=== PATIENT | female | born 1935 | race Caucasian/White ===

== ENCOUNTER 2018-08-11 15:48 | Emergency (ER) | payer MEDICARE ==
[2018-08-11 16:19] LABS: BASOPHILS % (AUTO) 1.1 % (0.0-5.0); EOSINOPHILS % (AUTO) 1.5 % (0.0-8.0); HEMATOCRIT 33.8 % (36-48); LYMPHOCYTES % (AUTO) 22.7 % (21.0-51.0); MEAN CORPUSCULAR HEMOGLOBIN 30.2 pg (27.0-33.0); MEAN CORPUSCULAR HGB CONC 33.1 g/dL (32.0-36.0); MEAN CORPUSCULAR VOLUME 91.2 fL (79-99); MONOCYTES % (AUTO) 10.9 % (3.0-13.0); NEUTROPHILS % (AUTO) 63.8 % (40.0-77.0); PLATELET COUNT (AUTO) 167 K/uL (130-400); RED CELL DISTRIBUTION WIDTH 14.4 % (11.0-15.5); WHITE BLOOD COUNT (AUTO) 4.3 K/uL (4.8-10.8)
[2018-08-11 16:20] LABS: BILIRUBIN,URINE Negative (NEGATIVE); COLOR,URINE Dark Yellow (YELLOW); GLUCOSE, URINE (UA) Negative (NEGATIVE); KETONES,URINE Trace mg/dL (NEGATIVE); LEUKOCYTE ESTERASE ,URINE Negative (NEGATIVE); NITRATE,URINE Negative (NEGATIVE); OCCULT BLOOD,URINE Negative (NEGATIVE); PROTEIN,URINE Negative (NEGATIVE)
[2018-08-11 16:21] LABS: APPEARANCE,URINE CLEAR (CLEAR)
[2018-08-11 16:27] LABS: CREATININE 1.5 mg/dL (0.5-1.5); POTASSIUM 4.3 mmol/L (3.5-5.1)
[2018-08-11 16:32] LABS: ALBUMIN 3.6 g/dL (3.5-5.0); BILIRUBIN,TOTAL 0.3 mg/dL (0.2-1.0); TOTAL PROTEIN, SERUM 7.1 g/dL (6.0-8.3)
[2018-08-11] MEDS ORDERED: ONDANSETRON HCL 4 MG/2 ML VIAL ONE (16:44)
[2018-08-11] MEDS ORDERED: MORPHINE SULFATE 2 MG/ML 1ML SYG ONE (16:45)
[2018-08-11] MEDS ORDERED: SODIUM CHLORIDE 0.9% 1000ML 1,000 ML IV ONE (18:04)
== END 2018-08-11 19:01 | disposition home or self-care (01) ==
LOC: EDH 15:48
DX: E86.0 Dehydration (principal); F03.90 Unspecified dementia, unspecified severity, without behavioral disturbance, psychotic disturbance, mood disturbance, and anxiety; E78.5 Hyperlipidemia, unspecified; J44.9 Chronic obstructive pulmonary disease, unspecified; Z87.891 Personal history of nicotine dependence
CPT/HCPCS: 36415; 74176; 80053; 81003; 85025; 96374; 96375; 99284; J2405; J7030

== ENCOUNTER 2019-03-05 13:58 | Inpatient (IN) | payer MEDICARE ==
[~2019-03-05] VITALS: Ht 152.4 cm; Wt 49.9 kg
[2019-03-05 14:16] LABS: BASOPHILS % (AUTO) 0.3 % (0.0-5.0); EOSINOPHILS % (AUTO) 0.4 % (0.0-8.0); HEMATOCRIT 27.5 % (36-48); MEAN CORPUSCULAR HEMOGLOBIN 31.5 pg (27.0-33.0); MEAN CORPUSCULAR VOLUME 92.5 fL (79-99); MONOCYTES % (AUTO) 10.2 % (3.0-13.0); NEUTROPHILS % (AUTO) 75.1 % (40.0-77.0); PLATELET COUNT (AUTO) 129 K/uL (130-400); RED BLOOD CELL COUNT(AUTO) 2.97 MIL/uL (4.00-5.50); RED CELL DISTRIBUTION WIDTH 13.6 % (11.0-15.5); WHITE BLOOD COUNT (AUTO) 5.4 K/uL (4.8-10.8)
[2019-03-05 14:28] LABS: CREATININE 2.8 mg/dL (0.5-1.5); POTASSIUM 4.6 mmol/L (3.5-5.1)
[2019-03-05 14:35] LABS: ALBUMIN 3.5 g/dL (3.5-5.0); BILIRUBIN,TOTAL 0.4 mg/dL (0.2-1.0); TOTAL PROTEIN, SERUM 6.6 g/dL (6.0-8.3)
[2019-03-05 15:37] LABS: APPEARANCE,URINE Clear (CLEAR); BILIRUBIN,URINE Negative (NEGATIVE); COLOR,URINE Dark Yellow (YELLOW); GLUCOSE, URINE (UA) Negative (NEGATIVE); KETONES,URINE Negative (NEGATIVE); LEUKOCYTE ESTERASE ,URINE Negative (NEGATIVE); NITRATE,URINE Negative (NEGATIVE); OCCULT BLOOD,URINE Negative (NEGATIVE); PROTEIN,URINE POS 1+ mg/dL (NEGATIVE)
[2019-03-05 15:56] LABS: BACTERIA,URINE Few /HPF (None Seen); RBC,URINE 0-1 /HPF (0-1); WBC,URINE 0-1 /HPF (0-1)
[2019-03-05 15:57] LABS: SQUAMOUS EPITHELIAL CELL,UR Rare /HPF (0-2)
[2019-03-05 15:58] LABS: HYALINE CASTS, URINE 0-1 /LPF (0-1 /LPF); URIC ACID CRYSTALS,URINE Rare /LPF (None Seen)
[2019-03-05] MEDS ORDERED: CEFTRIAXONE SODIUM 1 GM ONE ×2 (17:53→17:55)
[2019-03-05] MEDS ORDERED: SODIUM CHLORIDE 0.9% 100 ML IV ONE ×2 (17:53→17:56)
[2019-03-05 18:55] VITALS: BP 123/70
[2019-03-05] MEDS ORDERED: DEXTROSE 50%-WATER 50 ML DISP.SYRIN IV PRN (19:30)
[2019-03-05] MEDS: PHARMACY COMMUNICATION MISC SCH (19:30)
[2019-03-05] MEDS ORDERED: GLUCAGON 1MG KIT 1 MG ML IM PRN (19:30)
[2019-03-05] MEDS: INSULIN R PO SS1 SQ SCH (20:44)
[2019-03-05] MEDS: 1/2 NORMAL SALINE 1,000 ML IV SCH (21:42)
[2019-03-05] MEDS ORDERED: QUETIAPINE FUMARATE 25 MG TAB PO SCH (22:00)
[2019-03-05] MEDS ORDERED: VIT1CAPS47 PO (22:20)
[2019-03-05] MEDS ORDERED: SERT100T12 PO ×2 (22:20→22:25)
[2019-03-05] MEDS ORDERED: DOCU100C33 PO (22:20)
[2019-03-05] MEDS ORDERED: DONE10TA43 PO (22:20)
[2019-03-05] MEDS ORDERED: ASPI-555 PO (22:25)
[2019-03-05] MEDS ORDERED: SIMV-46 PO (22:25)
[2019-03-05] MEDS ORDERED: MIRT15TA PO (22:25)
[2019-03-05] MEDS ORDERED: QUET25TA PO (22:25)
[2019-03-06] MEDS: PHARMACY COMMUNICATION MISC SCH ×2 (03:30→19:30)
[2019-03-06] MEDS: 1/2 NORMAL SALINE 1,000 ML IV SCH (03:33)
[2019-03-06 04:45] VITALS: BP 143/68
[2019-03-06] MEDS: INSULIN R PO SS1 SQ SCH ×3 (05:19→21:00)
[2019-03-06 05:48] LABS: BASOPHILS % (AUTO) 0.3 % (0.0-5.0); EOSINOPHILS % (AUTO) 1.7 % (0.0-8.0); HEMATOCRIT 23.9 % (36-48); LYMPHOCYTES % (AUTO) 21.8 % (21.0-51.0); MEAN CORPUSCULAR HEMOGLOBIN 31.6 pg (27.0-33.0); MEAN CORPUSCULAR HGB CONC 34.2 g/dL (32.0-36.0); MEAN CORPUSCULAR VOLUME 92.2 fL (79-99); MONOCYTES % (AUTO) 12.4 % (3.0-13.0); NEUTROPHILS % (AUTO) 63.8 % (40.0-77.0); PLATELET COUNT (AUTO) 113 K/uL (130-400); RED BLOOD CELL COUNT(AUTO) 2.59 MIL/uL (4.00-5.50); RED CELL DISTRIBUTION WIDTH 13.9 % (11.0-15.5); WHITE BLOOD COUNT (AUTO) 4.2 K/uL (4.8-10.8)
[2019-03-06 05:55] LABS: ALBUMIN 3.2 g/dL (3.5-5.0); BILIRUBIN,TOTAL 0.2 mg/dL (0.2-1.0); CREATININE 2.2 mg/dL (0.5-1.5); POTASSIUM 4.6 mmol/L (3.5-5.1); TOTAL PROTEIN, SERUM 6.3 g/dL (6.0-8.3)
--- NOTE | 2019-03-06 06:25 | NUR ---
CHAVA JAIN ROUNDED: Seen and examined pt with the ff: orders. 1. if pt eats well then let her go home. 2. resume home meds 3. will go out of town today. Dr. Chambers to cover.
[2019-03-06 07:30] VITALS: BP 140/60
[2019-03-06] MEDS: ***HM***(Vit C/E/Zn/Coppr/Lutein/Zeaxan (Preservision Areds 2 Soft PO SCH ×2 (09:00→21:00)
[2019-03-06] MEDS: SERTRALINE HCL 50 MG TABLET PO SCH ×2 (09:29→21:35)
[2019-03-06] MEDS: DOCUSATE SODIUM 100 MG CAP PO SCH (09:29)
[2019-03-06] MEDS: ASPIRIN 81 MG EC TAB PO SCH (09:29)
[2019-03-06] MEDS: QUETIAPINE FUMARATE 25 MG TAB PO SCH (09:30)
[2019-03-06 11:00] VITALS: BP 122/52
--- NOTE | 2019-03-06 11:30 | NUR ---
INITIAL MET W PT/SPOUSE AT BEDSIDE, PT'S SPOUSE HAS BEEN CARING FOR HER FOR QUITE SOME TIME- PT HAS ADVANCED DEMENTIA; IS VERY MOBILE WITHOUT A NEED FOR DME, HAS POOR APPETITE, AND SPOUSE USES PRIVATE CAREGIVER [facility]. Addendum: 03/06/19 at 1900 by PRABHU CRABTREE RN CM Amended: Links added. Addendum: 03/07/19 at 0748 by PRABHU CRABTREE RN CM DCP IS HOME WITH INCREASED SUPPORT. PT HERE FOR UTI AND MED ADJUSTMENT, DR. FRANKLIN TO MAKE RECOMMENDATIONS.
[2019-03-06] MEDS ORDERED: RISPERIDONE 1 MG TABLET PO STA (13:48)
[2019-03-06] MEDS ORDERED: DiphenhydrAMINE HCL 50 MG/ML VIAL IM STA (13:49)
[2019-03-06] MEDS: CEFTRIAXONE SODIUM 1 GM IVP SCH (14:49)
[2019-03-06 16:00] VITALS: BP 141/70
[2019-03-06] MEDS ORDERED: CEFTRIAXONE SODIUM 1 GM IVP SCH (16:00)
[2019-03-06 20:00] VITALS: BP 150/64
[2019-03-06] MEDS: RISPERIDONE 1 MG TABLET PO SCH (21:34)
[2019-03-06] MEDS: DONEPEZIL HCL 5 MG TAB PO SCH (21:34)
[2019-03-06] MEDS: MIRTAZAPINE 15 MG TABLET PO SCH (21:35)
[2019-03-06] MEDS: SIMVASTATIN 20 MG TABLET PO SCH (21:35)
[2019-03-07] VITALS (7 sets, daily range): BP systolic 115–158; BP diastolic 59–74
[2019-03-07] MEDS: PHARMACY COMMUNICATION MISC SCH ×3 (03:30→19:30)
[2019-03-07 06:35] LABS: MEAN CORPUSCULAR HEMOGLOBIN 31.6 pg (27.0-33.0); MEAN CORPUSCULAR HGB CONC 34.1 g/dL (32.0-36.0); MEAN CORPUSCULAR VOLUME 92.7 fL (79-99); NUCLEATED RED BLOOD CELLS 0.1 % (0.0-0.19); PLATELET COUNT (AUTO) 103 K/uL (130-400); RED BLOOD CELL COUNT(AUTO) 2.49 MIL/uL (4.00-5.50); WHITE BLOOD COUNT (AUTO) 2.7 K/uL (4.8-10.8)
[2019-03-07] MEDS: INSULIN R PO SS1 SQ SCH ×4 (06:40→21:00)
[2019-03-07 06:44] LABS: CREATININE 1.7 mg/dL (0.5-1.5); MAGNESIUM 2.1 mg/dL (1.80-2.40)
[2019-03-07 08:20] LABS: EOSINOPHILS % (MANUAL) 2 % (1-6); LYMPHOCYTES % (MANUAL) 27 % (22-44); MONOCYTES % (MANUAL) 8 % (2-9); SEGMENTED NEUTROPHILS % 63 % (40-70)
[2019-03-07 08:21] LABS: MAN.DIFF COMMENT-IMPRESSION MANUAL DIFFERENTIAL
[2019-03-07 08:38] LABS: PLATELET MORPHOLOGY COMMENT SLIGHTLY DECREASED
[2019-03-07] MEDS: ***HM***(Vit C/E/Zn/Coppr/Lutein/Zeaxan (Preservision Areds 2 Soft PO SCH ×2 (09:00→21:00)
[2019-03-07] MEDS: QUETIAPINE FUMARATE 25 MG TAB PO SCH (10:55)
[2019-03-07] MEDS: RISPERIDONE 1 MG TABLET PO SCH ×2 (10:55→22:49)
[2019-03-07] MEDS: SERTRALINE HCL 50 MG TABLET PO SCH (10:55)
[2019-03-07] MEDS: ASPIRIN 81 MG EC TAB PO SCH (10:56)
[2019-03-07] MEDS: DOCUSATE SODIUM 100 MG CAP PO SCH (10:56)
[2019-03-07] MEDS: CEFTRIAXONE SODIUM 1 GM IVP SCH (16:33)
[2019-03-07] MEDS: SIMVASTATIN 20 MG TABLET PO SCH (22:50)
[2019-03-07] MEDS: DONEPEZIL HCL 5 MG TAB PO SCH (22:50)
[2019-03-07] MEDS: MIRTAZAPINE 15 MG TABLET PO SCH (22:50)
[2019-03-08 03:10] VITALS: BP 165/87
[2019-03-08] MEDS: PHARMACY COMMUNICATION MISC SCH ×2 (03:30→19:30)
[2019-03-08] MEDS: INSULIN R PO SS1 SQ SCH ×4 (05:56→21:00)
[2019-03-08 07:00] VITALS: BP 163/83
[2019-03-08] MEDS: ***HM***(Vit C/E/Zn/Coppr/Lutein/Zeaxan (Preservision Areds 2 Soft PO SCH ×2 (09:00→21:00)
[2019-03-08] MEDS: RISPERIDONE 1 MG TABLET PO SCH ×2 (09:21→21:22)
[2019-03-08] MEDS: ASPIRIN 81 MG EC TAB PO SCH (09:21)
[2019-03-08] MEDS: DOCUSATE SODIUM 100 MG CAP PO SCH (09:21)
[2019-03-08 11:00] VITALS: BP 163/79
[2019-03-08 16:00] VITALS: BP 171/72
[2019-03-08] MEDS: CEFTRIAXONE SODIUM 1 GM IVP SCH (17:17)
[2019-03-08 20:00] VITALS: BP 117/64
[2019-03-08] MEDS: DONEPEZIL HCL 5 MG TAB PO SCH (21:22)
[2019-03-08] MEDS: MIRTAZAPINE 15 MG TABLET PO SCH (21:23)
[2019-03-08] MEDS: SIMVASTATIN 20 MG TABLET PO SCH (21:23)
[2019-03-09] VITALS: BP 143/95
[2019-03-09] MEDS: PHARMACY COMMUNICATION MISC SCH ×3 (03:30→19:30)
[2019-03-09 04:00] VITALS: BP 157/76
[2019-03-09] MEDS: INSULIN R PO SS1 SQ SCH ×4 (06:37→21:00)
[2019-03-09 07:25] VITALS: BP 144/74
[2019-03-09] MEDS: ASPIRIN 81 MG EC TAB PO SCH (09:00)
[2019-03-09] MEDS: ***HM***(Vit C/E/Zn/Coppr/Lutein/Zeaxan (Preservision Areds 2 Soft PO SCH ×2 (09:00→21:00)
[2019-03-09] MEDS: DOCUSATE SODIUM 100 MG CAP PO SCH (09:00)
[2019-03-09] MEDS: RISPERIDONE 1 MG TABLET PO SCH ×2 (10:59→20:15)
[2019-03-09 11:26] VITALS: BP 92/50
[2019-03-09 16:14] VITALS: BP 144/57
[2019-03-09] MEDS: DONEPEZIL HCL 5 MG TAB PO SCH (20:15)
[2019-03-09] MEDS: MIRTAZAPINE 15 MG TABLET PO SCH (20:16)
[2019-03-09] MEDS: SIMVASTATIN 20 MG TABLET PO SCH (20:16)
[2019-03-09 21:52] VITALS: BP 143/54
[2019-03-10 00:28] VITALS: BP 111/46
[2019-03-10] MEDS: PHARMACY COMMUNICATION MISC SCH ×2 (02:37→11:30)
[2019-03-10 04:30] VITALS: BP 106/43
--- NOTE | 2019-03-10 06:00 | NUR ---
DEEPIKA JAIN rounded: Visited and talked with the sister. Ordered ok to go home today. Continue current home meds.
[2019-03-10] MEDS: INSULIN R PO SS1 SQ SCH ×2 (06:54→11:30)
[2019-03-10 08:00] VITALS: BP 101/50
[2019-03-10] MEDS: ***HM***(Vit C/E/Zn/Coppr/Lutein/Zeaxan (Preservision Areds 2 Soft PO SCH (09:00)
--- NOTE | 2019-03-10 09:00 | NUR ---
HALLEY TO SPOUSE AT [facility] SPOUSE STATES SOMEONE PROMISED HIM HELP AT HOME OR PLACEMENT. ADIVSED HIM THAT SNF IS NOT AN OPTION PT HAS NOT SKILLED NEED- DOES NOT NEED PT/OT OR ABX. VAHID AGREES THAT IS TRUS, INFO GIVEN ON AREA AGENCY ON AGING- PT WAS REFERRED TO [facility] LAST WEEK AND WILL FOLLOW UP . STATES CANNOT REMEMBER IF SOME ONE CAME TO SEE HIM OR NOT Addendum: 03/10/19 at 1148 by PRABHU CRABTREE RN CM Amended: Links added.
[2019-03-10] MEDS: DOCUSATE SODIUM 100 MG CAP PO SCH (11:37)
[2019-03-10] MEDS: RISPERIDONE 1 MG TABLET PO SCH (11:38)
[2019-03-10] MEDS: ASPIRIN 81 MG EC TAB PO SCH (11:38)
[2019-03-10 12:21] VITALS: BP 154/77
--- NOTE | 2019-03-10 16:17 | NUR ---
PT DISCHARGED HOME USING TEACH BACK TECHNIQUE RE; FOLLOW UP WITH DR. LARSEN ON 03/12/2019 AT 10:30AM CALL IF UNABLE TO ATTEND APPOINTMENT AT PHONE # [phone] FRANKLIN ON 03/12/2019 AT 2:00pm CALL IF UNABLE TO ATTEND APPOINTMENT AT [phone]. YOU WILL ON SITE SERVICES SPECIALIST MEDICATION CALLED IN TO PHARMACY AT [facility] IN [place]. MAKE SURE TO DRINK PLENTY OF FLUIDS THROUGH OUT THE DAY. 1-2 LITERS OF FLUIDS PED DAY TO PREVENT DEHYDRATION. IF CONFUSED OR LETHARGIC OR COLD AND CLAMMY CALL 911. IV OUT INTACT, NO BLEEDING, AOX1, CONFUSED, IN NO DISTRESS, PRESCRIPTION CALLED IN TO [facility] IN [facility] ON [place] AND [place] FOR RISPERDAL SEE MED REC.
== END 2019-03-10 17:20 | disposition home or self-care (01) | DRG 640 ==
LOC: EDH 13:58 → OBSVTOIN 17:00 → EDHIP 17:00 → 3CH 18:33 → 3DH 21:57
PROVIDERS: ADMIT Internal Medicine; ATTEND Internal Medicine
DX: E86.0 Dehydration (principal); N17.0 Acute kidney failure with tubular necrosis; N39.0 Urinary tract infection, site not specified; D61.818 Other pancytopenia; R41.0 Disorientation, unspecified; R26.9 Unspecified abnormalities of gait and mobility; F32.9 Major depressive disorder, single episode, unspecified; Z60.2 Problems related to living alone; F02.80 Dementia in other diseases classified elsewhere, unspecified severity, without behavioral disturbance, psychotic disturbance, mood disturbance, and anxiety; G30.9 Alzheimer's disease, unspecified; E78.5 Hyperlipidemia, unspecified; F39 Unspecified mood [affective] disorder; I12.9 Hypertensive chronic kidney disease with stage 1 through stage 4 chronic kidney disease, or unspecified chronic kidney disease; J44.9 Chronic obstructive pulmonary disease, unspecified; N18.9 Chronic kidney disease, unspecified; Z86.73 Personal history of transient ischemic attack (TIA), and cerebral infarction without residual deficits; Z87.440 Personal history of urinary (tract) infections
CPT/HCPCS: 36415; 70450; 71045; 76770; 80048; 80053; 81001; 82948; 83735; 84484; 85025; 85027; 87077; 87088; 87186; 93005; G0378; J0696; J1200

== ENCOUNTER 2021-05-17 15:15 | Emergency (ER) | payer MEDICARE ==
[~2021-05-17] VITALS: Ht 167.6 cm; Wt 68.0 kg
[~2021-05-17 15:15] MED LIST: ASPI-556 PO; DOCU100C33 PO; DONE10TA43 PO; MIRT-120 PO; QUET25TA PO; SERT-440 PO; SIMV-46 PO; VIT1CAPS47 PO
[2021-05-17 15:55] LABS: BASOPHILS % (AUTO) 0.4 % (0.0-5.0); EOSINOPHILS % (AUTO) 1.9 % (0.0-8.0); HEMATOCRIT 37.3 % (36-48); LYMPHOCYTES % (AUTO) 20.8 % (21.0-51.0); MEAN CORPUSCULAR HEMOGLOBIN 31.8 pg (27.0-33.0); MEAN CORPUSCULAR HGB CONC 31.9 g/dL (32.0-36.0); MEAN CORPUSCULAR VOLUME 99.7 fL (79-99); MONOCYTES % (AUTO) 8.4 % (3.0-13.0); NEUTROPHILS % (AUTO) 68.1 % (40.0-77.0); PLATELET COUNT (AUTO) 253 K/uL (130-400); RED BLOOD CELL COUNT(AUTO) 3.74 MIL/uL (4.00-5.50); RED CELL DISTRIBUTION WIDTH 13.2 % (11.0-15.5); WHITE BLOOD COUNT (AUTO) 5.3 K/uL (4.8-10.8)
[2021-05-17 16:06] LABS: CREATININE 1.3 mg/dL (0.5-1.5); POTASSIUM 4.8 mmol/L (3.5-5.1)
[2021-05-17 16:11] LABS: ALBUMIN 3.6 g/dL (3.5-5.0); BILIRUBIN,TOTAL 0.3 mg/dL (0.2-1.0); TOTAL PROTEIN, SERUM 7.9 g/dL (6.0-8.3)
[2021-05-17 16:28] VITALS: BP 167/69
[2021-05-17 16:34] LABS: APPEARANCE,URINE Turbid (CLEAR); BILIRUBIN,URINE Negative (NEGATIVE); COLOR,URINE Dark Yellow (YELLOW); GLUCOSE, URINE (UA) Negative (NEGATIVE); KETONES,URINE Trace mg/dL (NEGATIVE); LEUKOCYTE ESTERASE ,URINE Large (NEGATIVE); NITRATE,URINE Positive (NEGATIVE); OCCULT BLOOD,URINE Large (NEGATIVE); PROTEIN,URINE POS 1+ mg/dL (NEGATIVE)
[2021-05-17] MEDS ORDERED: CEPH500B PO (16:51)
[2021-05-17] MEDS ORDERED: CEFTRIAXONE 1G VIAL IVP ONE (17:00)
[2021-05-17 17:08] LABS: BACTERIA,URINE Moderate /HPF (None Seen); MUCUS,URINE Few LPF (None Seen); SQUAMOUS EPITHELIAL CELL,UR 0-2 /HPF (0-2)
== END 2021-05-17 17:30 | disposition home or self-care (01) ==
LOC: EDH 15:15
DX: N39.0 Urinary tract infection, site not specified (principal); I95.9 Hypotension, unspecified; G30.9 Alzheimer's disease, unspecified; F02.80 Dementia in other diseases classified elsewhere, unspecified severity, without behavioral disturbance, psychotic disturbance, mood disturbance, and anxiety; Z20.822 Contact with and (suspected) exposure to COVID-19; G20 Parkinson's disease; I10 Essential (primary) hypertension; Z79.82 Long term (current) use of aspirin; Z79.899 Other long term (current) drug therapy
CPT/HCPCS: 36415; 71045; 80053; 81001; 82270; 83880; 84484; 85025; 86140; 87077; 87088; 87186; 87635; 93005; 96374; 99285; C9803; J0696